=== PATIENT | male | born 1955 | race Caucasian/White ===

== ENCOUNTER 2022-07-26 07:45 | Outpatient (CLI) | payer MEDICARE, SELFPAY ==
--- NOTE | ~2022-07-26 | MR_ITS ---
EXAMINATION: MR MRCP wo/w con/w 3D wo ind DATE: 07/26/2022 09:07 INDICATION: Gallstones, right upper quadrant pain and abnormal pancreatic enzyme levels. TECHNIQUE: Magnetic resonance imaging (MRI) of the abdomen was performed without and with 17 mL Multi mary intravenous contrast. Sequences included coronal T2-weighted SS-FSE, coronal T2-weighted FS SS- FSE, coronal T2-weighted FS FIESTA, axial T2-weighted FS FIESTA, axial T2-weighted FIESTA, sagittal T 2-weighted SS-FSE, axial T1-weighted dual-echo FSPGR, axial T2-weighted SS-FSE, axial T1-weighted LAV A, axial T2-weighted STIR FSE. Thick-slab T2-weighted FRFSE-XL images were obtained for magnetic reso nance cholangiopancreatography (MRCP). Rotating maximum intensity projection 3-D reconstructions of t he volumetric data were created by the technologist. Postcontrast sequences included a time course of axial T1-weighted LAVA. COMPARISON: None. FINDINGS: ABDOMEN MRI: Heart size is normal. No pericardial or pleural effusion. Multiple small T2 hyperintense nonenhancing hepatic cysts the largest measuring 1.5 cm. There are a few low signal intensity gallstones in the d ependent aspect of the normal gallbladder with no gallbladder dilation, wall thickening or pericholec ystic infiltrate stranding to suggest acute cholecystitis. Pancreas, spleen and right adrenal gland a re normal. 2.8 cm left adrenal mass containing a region of saturating macroscopic fat consistent with a myelolipoma. A couple 8 mm T2 hyperintense nonenhancing cysts at the upper pole of the right and l ower pole of the left kidneys. Bowels including the appendix are normal. Bladder is normal. No pathol ogically enlarged abdominal or pelvic lymphadenopathy. Small fat-containing umbilical hernia. Severe lumbar spondylosis. ABDOMEN MRCP: Common bile duct is normal measuring up to 5 mm in maximal diameter and tapers smoothly in the distal duct. The common hepatic duct measures up to 7 mm. No filling defects to suggest choledocholithiasis . No intrahepatic biliary ductal dilation. There is also normal caliber of the main pancreatic duct. IMPRESSION: 1. Cholelithiasis. No acute cholecystitis, choledocholithiasis or dilation of the biliary or pancreat ic ducts. 2. 2.8 cm left adrenal myelolipoma. Reviewed, dictated and finalized at location A. IMPRESSION: 1. Cholelithiasis. No acute cholecystitis, choledocholithiasis or dilation of t he biliary or pancreatic ducts. 2. 2.8 cm left adrenal myelolipoma.
== END 2022-07-26 07:46 | disposition home or self-care (01) ==
PROVIDERS: Visit Provider Nurse Practitioner
DX: R74.8 Abnormal levels of other serum enzymes (principal); K80.20 Calculus of gallbladder without cholecystitis without obstruction; D17.79 Benign lipomatous neoplasm of other sites
CPT/HCPCS: 74183; 76376; A9577

== ENCOUNTER 2022-09-12 07:00 | Outpatient (NON) | payer MEDICARE, SELFPAY | END 2022-09-12 07:01 | disposition home or self-care (01) | LOC: ANHLAB 09-13 08:09 | PROVIDERS: Visit Provider Internal Medicine Gastroenterology | DX: K58.9 Irritable bowel syndrome, unspecified (principal) | CPT/HCPCS: 88305 ==

== ENCOUNTER 2022-09-12 09:19 | Day surgery (SDC) | payer MEDICARE, SELFPAY ==
[2022-09-01 11:30] VITALS: BMI 29.5
[2022-09-12 09:45] VITALS: BP 142/98; PULSE 72; RESP 20; TEMP 37.1; O2SAT 98
[2022-09-12] MEDS: LACTATED RINGERS 1,000 ML 150 ML IV CONT (10:10)
--- NOTE | 2022-09-12 10:46 | P.PNAN_ITS ---
Anes - Initial Pre Proc Eval Procedure: Operation Date: 09/12/22 11:00 Proposed Procedures p Flexible Sigmoidoscopy - Barrett Anne MD Date/Time: 09/12/22 10:46 Surgeon: Barrett Anne MD Pre Op Diagnosis: Diarrhea Patient Data Age: 66 Gender: M Height: 1.73 m Weight: 87.6 kg Last Vital Signs Temp 37.1 C 09/12/22 09:45 Pulse 72 09/12/22 09:45 Resp 20 09/12/22 09:45 BP 142/98 H 09/12/22 09:45 Pulse Ox 98 09/12/22 09:45 O2 Del Method Room Air 09/12/22 09:45 Allergies Allergy/AdvReac Type Severity Reaction Status Date / Time No Known Allergies Allergy Verified 09/12/22 10:05 Home Medications Medication Instructions Recorded Confirmed Type lisinopril 30 mg tablet 30 mg PO DAILY 06/23/22 09/12/22 History trazodone 150 mg tablet 150 mg PO QHS 06/23/22 09/12/22 History hydrochlorothiazide 25 mg tablet 25 mg PO DAILY 09/01/22 09/12/22 History Patient hx anesthesia problems: none Family hx anesthesia problems: none Results Review: All pre-operative results and documents have been reviewed as part of the pre- operative evaluation. [facility] Past Medical History Medical History Barretts esophagus Cholelithiases Chronic diarrhea Diverticulosis Elevated fecal calprotectin GERD (gastroesophageal reflux disease) Hepatic cyst Hx of colonic polyps Hypertension IBS (irritable bowel syndrome) Periumbilical hernia Right upper quadrant abdominal pain Social History Social History Smoking status: Former smoker (quit 20 years ago) Alcohol intake: current Substance use type: does not use Living arrangements: with family Spiritual care concerns: No Anes - Eval Final PreProcedure Day of Procedure 09/12/22 10:46 Patient weight: overweight Heart: regular rate and rhythm Lungs: decreased breath sounds Airway: Mallampati scale class II Neurological: alert and oriented Last oral intake: >/= 8 hours ASA classification: III Emergent: no Anesthetic plan: proceed Anesthesia type and monitoring: general GIVS and standard monitoring Results Review: All pre-operative results and documents have been reviewed as part of the pre- operative evaluation. Informed Consent: The patient's anesthetic plan and its attendant risks and benefits were discussed with the patient/family/POA. Questions were solicited and answers provided to the satisfaction of the patient/family/POA.
--- NOTE | 2022-09-12 10:56 | PM.HPGS ---
History of Present Illness History of Present Illness Consent: Risks, benefits, and alternatives have been discussed and questions answered. Patient agrees to proceed with procedure. Chief complaint: Diarrhea Narrative: Guanaco Andrews is a 66 year old male with intermittent diarrhea, viberzi helped when he got samples but can not afford it. Lately better, last colonoscopy 2020 with polyps. Had mild elevated calprotectin in stool. Review of Systems Constitutional: Constitutional: Denies headache(s) and Denies weakness Eyes: Eyes: Denies blurry vision ENT: Reports Normal hearing present, Denies headache(s) and Denies neck pain Cardiovascular: Cardiovascular: Denies chest pain and Denies dyspnea Respiratory: Respiratory: Denies dyspnea Gastrointestinal: Gastrointestinal: Reports no additional gastrointestinal complaints Genitourinary: Genitourinary: Denies dysuria Musculoskeletal: Musculoskeletal: Denies neck pain Integumentary/Breasts: Skin/Breast: Denies dry skin Neurologic: Reports Normal hearing present, Denies headache(s) and Denies weakness Psychiatric: Psychiatric: Denies anxiety Endocrine: Endocrine: Denies change in body appearance Hematologic/Lymphatic: Hematologic/Lymphatic: Denies easy bleeding Allergic/Immunologic: Allergic/Immunologic: Denies urticaria PMFSH Past Medical History Medical History Barretts esophagus Cholelithiases Chronic diarrhea Diverticulosis Elevated fecal calprotectin GERD (gastroesophageal reflux disease) Hepatic cyst Hx of colonic polyps Hypertension IBS (irritable bowel syndrome) Periumbilical hernia Right upper quadrant abdominal pain Social History Social History Smoking status: Former smoker (quit 20 years ago) Alcohol intake: current Substance use type: does not use Living arrangements: with family Spiritual care concerns: No Meds Home Medications and Allergies Home Medications Medication Instructions Recorded Confirmed Type lisinopril 30 mg tablet 30 mg PO DAILY 06/23/22 09/12/22 History trazodone 150 mg tablet 150 mg PO QHS 06/23/22 09/12/22 History hydrochlorothiazide 25 mg tablet 25 mg PO DAILY 09/01/22 09/12/22 History Allergies Allergy/AdvReac Type Severity Reaction Status Date / Time No Known Allergies Allergy Verified 09/12/22 10:05 Vital Signs Vital Signs - 24 hr 09/12/22 09:45 Temperature 98.8 F Pulse Rate 72 Respiratory Rate 20 Blood Pressure 142/98 H Pulse Oximetry 98 Oxygen Delivery Room Air Exam Const: General: comfortable and no acute distress HENMT: Face/Nose/Sinus: Normal nares present Eyes: General: appearance normal, both eyes and all related structures Neck: Neck: no JVD Resp: Auscultation: clear to auscultation bilaterally Cardio: Rate: regular rate Rhythm: regular rhythm GI: Inspection: non-distended GI Palp: Yes Soft to palpation Skin: General skin exam: normal color Neuro: General: gait normal Speech: normal speech Extrem: General: normal to inspection Psych: Mental Status: mental status grossly normal Assessment and Plan Assessment and plan (1) Chronic diarrhea: Code(s): K52.9 - Noninfective gastroenteritis and colitis, unspecified Status: Acute Assessment and Plan: sigmoidoscopy, assess if colitis (2) Elevated fecal calprotectin: Code(s): R19.5 - Other fecal abnormalities Status: Acute (3) IBS (irritable bowel syndrome): Code(s): K58.9 - Irritable bowel syndrome without diarrhea Status: Acute
[2022-09-12 11:12] VITALS: BP 120/79; PULSE 98; RESP 15; O2SAT 100
--- NOTE | 2022-09-12 11:20 | WPDANESPN ---
Anes - Prog Note Post-Op Date/Time: 09/12/22 11:20 Cardiovascular status: normal Respiratory status: normal Airway patency: baseline Mental status: baseline Post-Op hydration status: normal Vital Signs: Last Vital Signs Temp 37.1 C 09/12/22 09:45 Pulse 98 09/12/22 11:12 Resp 15 09/12/22 11:12 BP 120/79 09/12/22 11:12 Pulse Ox 100 09/12/22 11:12 O2 Del Method Room Air 09/12/22 11:12 Pain Score (VAS): 0 I/O: Intake & Output 09/11/22 09/12/22 09/12/22 23:59 07:59 15:59 Intake Total 100 Balance 100 Patient Feedback: Patient satisfied with anesthetic care.
[2022-09-12 11:22] VITALS: BP 111/91; PULSE 70; RESP 14; O2SAT 100
[2022-09-12 11:32] VITALS: BP 129/86; PULSE 73; RESP 15; O2SAT 100
== END 2022-09-12 11:55 | disposition home or self-care (01) ==
PROVIDERS: Visit Provider Internal Medicine Gastroenterology
PROC: 0DJD8ZZ Inspection of Lower Intestinal Tract, Via Natural or Artificial Opening Endoscopic (ICD-10-PCS; CPT 45330; principal; 2022-09-12 11:00)
DX: R19.5 Other fecal abnormalities (principal)
CPT/HCPCS: 45331

== ENCOUNTER → 2023-05-09 14:31 | Outpatient (CLI) | payer MEDICARE, SELFPAY ==
--- NOTE | ~2023-05-09 | MR_ITS ---
EXAMINATION: MR lumbar spine wo con DATE: 05/09/2023 15:03 INDICATION: Lumbago. TECHNIQUE: Magnetic resonance imaging (MRI) of the lumbar spine was performed without intravenous con trast. Sequences included sagittal T2-weighted FSE, sagittal T2-weighted FS FSE, sagittal T1-weighted FSE, and axial T2-weighted FSE. COMPARISON: None FINDINGS: There is 5 degrees levocurvature of lumbar spine. There is mild chronic anterior wedging of T12 vertebral body. There is 3 mm retrolisthesis of L1 on L2 and T12 on L1. There is mildly decrease d disc height at T12-L1 and L1-L2, severely decreased disc height at L3-L4, moderately decreased disc height at L4-L5, and severely decreased disc height at L5-S1 with endplate remodeling. Epidural lipo matosis is noted. The distal spinal cord signal intensity is normal. The conus medullaris is at T12. Osseous central spinal canal is developmentally small in lumbar spine. The following disc levels are specifically discussed: L1-L2: The disc is bulging. There is severe bilateral facet joint osteoarthritis. There is moderate b ilateral neural foraminal stenosis. There is mild central canal stenosis. L2-L3: The disc is bulging. There is moderate bilateral facet joint osteoarthritis. There is moderate bilateral neural foraminal stenosis. There is moderate central canal stenosis. L3-L4: The disc is bulging. There is moderate bilateral facet joint osteoarthritis. There is moderate right and mild left neural foraminal stenosis. There is moderate central canal stenosis. L4-L5: The disc is bulging and has an annular fissure. There is severe bilateral facet joint osteoart hritis. There is severe right and moderate left neural foraminal stenosis. There is moderate central canal stenosis. L5-S1: The disc is bulging and superimposed central extrusion. There is moderate right and severe lef t facet joint osteoarthritis. There is mild right and moderate left neural foraminal stenosis. There is mild central canal stenosis. IMPRESSION: 1. Severe lumbar spondylosis. Reviewed, dictated and finalized at location A.
== END ==
PROVIDERS: Visit Provider Nurse Practitioner Family
DX: M47.896 Other spondylosis, lumbar region (principal)
CPT/HCPCS: 72148